=== PATIENT | female | born 1985 | race Caucasian/White ===

== ENCOUNTER 2020-05-27 05:05 | Inpatient (IN) | payer OTHER ==
[~2020-05-27] VITALS: Ht 162.6 cm; Wt 72.0 kg
--- NOTE | ~2020-05-27 | OR ---
[facility] [address], [place] [address] Draft DATE OF OPERATION: 05/27/2020 SURGEON: Lesvia Flores MD SOCIAL MEDIA SENIOR ASSOCIATE: Vasquez. PREOPERATIVE DIAGNOSIS: Term , previous section. POSTOPERATIVE DIAGNOSIS: Term , previous section, delivered. PROCEDURE: Repeat section with low segment transverse uterine incision. ANESTHESIA: Spinal. ESTIMATED BLOOD LOSS: 600 mL. DRAINS: Blue catheter. INDICATIONS AND FINDINGS: The patient is a 35-year-old female, 2, para 1, admitted at 39 weeks for repeat section. At the time of surgery, she was delivered a little boy from the LOT position via lower segment transverse uterine incision with Apgars of 9 and 9 and weight of 8 pounds 1 ounce. The uterus, tubes, ovaries, and placenta appeared normal. DESCRIPTION OF PROCEDURE: The patient was prepped and draped in the supine position. A Pfannenstiel skin incision was made through her prior incision. The incision was carried down through the fascia and fascial incision was extended laterally. The inferior and superior fascial flaps were created. The muscles were bluntly divided and the peritoneum opened sharply and the incision extended bluntly. There was some advancement of the bladder on the anterior wall of the uterus, but this was minimal. Following this, the Cornell retractor was placed. The uterine incision was made at the upper aspect of the peritoneal reflection. The baby was delivered with the above findings and handed off to the PATIENT NAME: JOSE R LANZA OPERATIVE REPORT DATE OF : 83 REPORT #: [id number] PHYSICIAN: LESVIA FLORES MD PCP: YUE CROWLEY MD REPORT IS CONFIDENTIAL AND NOT TO BE RELEASED WITHOUT AUTHORIZATION [facility] [address], [place] [address] Draft pediatric staff in attendance. The placenta was removed manually. The uterus was explored with lap tape assuring no remaining fragments. The uterus was closed in 2 layers using 0 Monocryl. The first layer was a running locking stitch and the second was a vertical imbricating stitch. There were some bleeding points on the anterior wall of the uterus from her prior adhesions, which were treated with cautery. The abdomen was then copiously irrigated, inspected, and good hemostasis was noted. The retractor was removed and the peritoneum identified. An ACell graft was then laid over the lower segment to aid in healing. The peritoneum was then closed with a running suture of 3-0 Vicryl. The muscles were brought together with interrupted sutures of 0 Vicryl. Bleeding points were controlled with cautery. This area was irrigated and inspected and again good hemostasis was noted. ACell powder was then sprinkled over the muscles to aid in healing. The fascia was then closed from each angle to the midline with a running suture of 0 Vicryl. The subcu space was irrigated, inspected and bleeding points controlled with cautery. The deep space was closed with interrupted sutures of 3-0 Vicryl. The skin was closed with alvaro. All sponge and needle counts were correct. She tolerated procedure well and was taken to the recovery room in good condition. MD ADIS Gaxiola/MODL /[id number] cc: Dr. Vasquez Copies: ~ PATIENT NAME: JOSE R LANZA MICKI OPERATIVE REPORT DATE OF : 83 REPORT #: [id number] PHYSICIAN: LESVIA FLORES MD PCP: YUE CROWLEY MD REPORT IS CONFIDENTIAL AND NOT TO BE RELEASED WITHOUT AUTHORIZATION
--- OUTSIDE RECORDS SUMMARY | ~2020-05-27 | XMS | Encounter Summary ---
Demographics + + + | Address | [address] | | | [place] [address] | + + + | Home Phone | | + + + | Preferred Language | Unknown | + + + | Marital Status | | + + + | Amish Affiliation | Unknown | + + + | Race | White | + + + | Ethnic Group | Not or | + + + Author + + + | Author | [facility] | + + + | Organization | [facility] | + + + | Address | Unknown | + + + | Phone | Unavailable | + + + Support + + +---------+ + | Name | Relationship | Address | Phone | + + +---------+ + | Artie Castellanos | ECON | Unknown | | + + +---------+ + Care Team Providers + +------+ + | Care Nurse Transitional Name | Role | Phone | + +------+ + | Gerry Perry MD | PCP | | + +------+ + Encounter Details +--------+ + + + + | Date | Type | Department | Care Team | Description | +--------+ + + + + | 12/19/ | Document-Sc | Health Information | Unknown . | | | 2017 | anned | Services [address] | | | | | | [address] | | | | | | Mailcode: OP17A | | | | | | [facility] | | | | | | [place], [place] | | | | | | [address] | | | | | | [phone] | | | +--------+ + + + + Social History + +-------+ +--------+------+ | Tobacco Use | Types | Packs/Day | Years | Date | | | | | Used | | + +-------+ +--------+------+ | Never Assessed | | | | | + +-------+ +--------+------+ + + + | Sex Assigned at | Date Recorded | | | | + + + | Not on file | | + + + + + + + | Job Start Date | Occupation | Industry | + + + + | Not on file | Not on file | Not on file | + + + + + + + + | Travel History | Travel Start | Travel End | + + + + + + | No recent travel history available. | + + documented as of this encounter Plan of Treatment Not on filedocumented as of this encounter Procedures + +--------+ + + + | Procedure Name | Priori | Date/Time | Associated Diagnosis | Comments | | | ty | | | | + +--------+ + + + | RADIOLOGY | | 12/19/2016 | | Results for this | | | | 12:00 AM | | procedure are in the | | | | PST | | results section. | + +--------+ + + + documented in this encounter Results RADIOLOGY (12/19/2016 12:00 AM PST) + + + | Narrative | Performed At | + + + | | | + + + documented in this encounter Visit Diagnoses Not on filedocumented in this encounter"
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
--- OUTSIDE RECORDS SUMMARY | ~2020-05-27 | XMS | Encounter Summary ---
Demographics + + + | Address | [address] | | | [place] [address] | + + + | Home Phone | | + + + | Preferred Language | Unknown | + + + | Marital Status | | + + + | Presybeterian Affiliation | Unknown | + + + | Race | White | + + + | Ethnic Group | Not or | + + + Author + + + | Author | [facility] | + + + | Organization | [facility] | + + + | Address | Unknown | + + + | Phone | Unavailable | + + + Support + + +---------+ + | Name | Relationship | Address | Phone | + + +---------+ + | Artie Castellanos | ECON | Unknown | | + + +---------+ + Care Team Providers + +------+ + | Care Learning Technologies Specialist Name | Role | Phone | + +------+ + | Gerry Perry MD | PCP | | + +------+ + Reason for Visit + + + | Reason | Comments | + + + | Question | | + + + Encounter Details +--------+ + + + + | Date | Type | Department | Care Team | Description | +--------+ + + + + | 11/03/ | Telephone | [facility] | Kennedy Garcia | Question | | 2017 | | Center at [facility] [address] | MD [address] | | | | | [address] [facility] | [facility] [address] | | | | | for Health and | [place], [place] | | | | | Healing, [place] [address], | [address] | | | | | [address] [place] [address] | [phone] | | | | | [place], [place] | | | | | | [address] | | | | | | [phone] | | | +--------+ + + + [...] Not on filedocumented as of this encounter Visit Diagnoses Not on filedocumented in this encounter
--- OUTSIDE RECORDS SUMMARY | ~2020-05-27 | XMS | Encounter Summary ---
Demographics + + + | Address | [address] | | | [place] [address] | + + + | Home Phone | | + + + | Preferred Language | Unknown | + + + | Marital Status | | + + + | Latter-Day Affiliation | Unknown | + + + | Race | White | + + + | Ethnic Group | Not or | + + + Author + + + | Author | [facility] | + + + | Organization | [facility] | + + + | Address | Unknown | + + + | Phone | Unavailable | + + + Support + + +---------+ + | Name | Relationship | Address | Phone | + + +---------+ + | Artie Castellanos | ECON | Unknown | | + + +---------+ + Care Team Providers + +------+ + | Care Driver Salesman Name | Role | Phone | + +------+ + | Gerry Perry MD | PCP | | + +------+ + Encounter Details +--------+ + + + + | Date | Type | Department | Care Team | Description | +--------+ + + + + | 08/17/ | Document-Sc | Health Information | Unknown . | | | 2017 | anned | Services [address] | | | | | | [address] | | | | | | Mailcode: OP17A | | | | | | [facility] | | | | | | [place], [place] | | | | | | [address] | | | | | | [phone] | | | +--------+ + + + [...] + + + | RADIOLOGY | | 08/17/2017 | | Results for this | | | | 12:00 AM | | procedure are in the | | | | PDT | | results section. | + +--------+ + + + | RADIOLOGY | | 08/17/2017 | | Results for this | | | | 12:00 AM | | procedure are in the | | | | PDT | | results section. | + +--------+ + + + documented in this encounter Results RADIOLOGY (08/17/2017 12:00 AM PDT) + + + | Narrative | Performed At | + + + | | | + + + RADIOLOGY (08/17/2017 12:00 AM PDT) + + + | Narrative | Performed At | + + + | | | + + + documented in this encounter Visit Diagnoses Not on filedocumented in this encounter"
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
--- OUTSIDE RECORDS SUMMARY | ~2020-05-27 | XMS | Encounter Summary ---
Demographics + + + | Address | [address] | | | [place] [address] | + + + | Home Phone | | + + + | Preferred Language | Unknown | + + + | Marital Status | | + + + | Yazidi Affiliation | Unknown | + + + | Race | White | + + + | Ethnic Group | Not or | + + + Author + + + | Author | [facility] | + + + | Organization | [facility] | + + + | Address | Unknown | + + + | Phone | Unavailable | + + + Support + + +---------+ + | Name | Relationship | Address | Phone | + + +---------+ + | Artie Castellanos | ECON | Unknown | | + + +---------+ + Care Team Providers + +------+ + | Care Jig Grinder Set Up Operator Name | Role | Phone | + +------+ + | Gerry Perry MD | PCP | | + +------+ + Encounter Details +--------+ + + + + | Date | Type | Department | Care Team | Description | +--------+ + + + + | 12/16/ | Document-Sc | Health Information | Unknown . | | | 2017 | anned | Services [address] | | | | | | [address] | | | | | | Mailcode: OP17A | | | | | | [facility] | | | | | | [place], [place] | | | | | | [address] | | | | | | [phone] | | | +--------+ + + + [...] + + + | RADIOLOGY | | 12/16/2016 | | Results for this | | | | 12:00 AM | | procedure are in the | | | | PST | | results section. | + +--------+ + + + documented in this encounter Results RADIOLOGY (12/16/2016 12:00 AM PST) + + + | Narrative | Performed At | + + + | | | + + + documented in this encounter Visit Diagnoses Not on filedocumented in this encounter"
--- OUTSIDE RECORDS SUMMARY | ~2020-05-27 | XMS | Encounter Summary ---
Demographics + + + | Address | [address] | | | [place] [address] | + + + | Home Phone | | + + + | Preferred Language | Unknown | + + + | Marital Status | | + + + | Yazidism Affiliation | Unknown | + + + | Race | White | + + + | Ethnic Group | Not or | + + + Author + + + | Author | [facility] | + + + | Organization | [facility] | + + + | Address | Unknown | + + + | Phone | Unavailable | + + + Support + + +---------+ + | Name | Relationship | Address | Phone | + + +---------+ + | Artie Castellanos | ECON | Unknown | | + + +---------+ + Care Team Providers + +------+ + | Care Industrial Commercial Groundskeeper Name | Role | Phone | + +------+ + | Gerry Perry MD | PCP | | + +------+ + Encounter Details +--------+ + + + + | Date | Type | Department | Care Team | Description | +--------+ + + + + | 10/14/ | Documentati | [place] [facility] | Kennedy Garcia | | | 2017 | on | Center at [facility] [address] | MD [address] | | | | | [address] [facility] | [address] | | | | | for Health and | [facility] [place] | | | | | [facility], [address], | [address] | | | | | 5th Floor | [phone] | | | | | [place], [place] | | | | | | [address] | | | | | | [phone] | | | +--------+ + + + [...]
--- OUTSIDE RECORDS SUMMARY | ~2020-05-27 | XMS | Encounter Summary ---
Demographics + + + | Address | [address] | | | [place] [address] | + + + | Home Phone | | + + + | Preferred Language | Unknown | + + + | Marital Status | | + + + | Anglican Affiliation | Unknown | + + + | Race | White | + + + | Ethnic Group | Not or | + + + Author + + + | Author | [facility] | + + + | Organization | [facility] | + + + | Address | Unknown | + + + | Phone | Unavailable | + + + Support + + +---------+ + | Name | Relationship | Address | Phone | + + +---------+ + | Artie Castellanos | ECON | Unknown | | + + +---------+ + Care Team Providers + +------+ + | Care Actuary Name | Role | Phone | + +------+ + | Gerry Perry MD | PCP | | + +------+ + Encounter Details +--------+ + + + + | Date | Type | Department | Care Team | Description | +--------+ + + + + | 12/25/ | Document-Sc | Health Information | Unknown . | | | 2017 | anned | Services [id number] | | | | | | [address] | | | | | | Mailcode: [id number] | | | | | | [facility] | | | | | | [place], [place] | | | | | | [address] | | | | | | [phone] | | | +--------+ + + + [...] + + + | RADIOLOGY | | 12/25/2016 | | Results for this | | | | 12:00 AM | | procedure are in the | | | | PST | | results section. | + +--------+ + + + documented in this encounter Results RADIOLOGY (12/25/2016 12:00 AM PST) + + + | Narrative | Performed At | + + + | | | + + + documented in this encounter Visit Diagnoses Not on filedocumented in this encounter"
--- OUTSIDE RECORDS SUMMARY | ~2020-05-27 | XMS | Encounter Summary ---
Demographics + + + | Address | [address] | | | [place] [address] | + + + | Home Phone | | + + + | Preferred Language | Unknown | + + + | Marital Status | | + + + | Gnosticist Affiliation | Unknown | + + + | Race | White | + + + | Ethnic Group | Not or | + + + Author + + + | Author | [facility] | + + + | Organization | [facility] | + + + | Address | Unknown | + + + | Phone | Unavailable | + + + Support + + +---------+ + | Name | Relationship | Address | Phone | + + +---------+ + | Artie Castellanos | ECON | Unknown | | + + +---------+ + Care Team Providers + +------+ + | Care Mink Rancher Name | Role | Phone | + +------+ + | Gerry Perry MD | PCP | | + +------+ + Encounter Details +--------+ + + + + | Date | Type | Department | Care Team | Description | +--------+ + + + + | 08/02/ | Document-Sc | Health Information | Unknown . | | | 2017 | anned | Services [id number] | | | | | | [address] | | | | | | Mailcode: [id number] | | | | | | [facility] | | | | | | [place], [place] | | | | | | [address] | | | | | | [phone] | | | +--------+ + + + [...] + + + | RADIOLOGY | | 08/02/2017 | | Results for this | | | | 12:00 AM | | procedure are in the | | | | PDT | | results section. | + +--------+ + + + documented in this encounter Results RADIOLOGY (08/02/2017 12:00 AM PDT) + + + | Narrative | Performed At | + + + | | | + + + documented in this encounter Visit Diagnoses Not on filedocumented in this encounter"
--- OUTSIDE RECORDS SUMMARY | ~2020-05-27 | XMS | Encounter Summary ---
Demographics + + + | Address | [address] | | | [place] [address] | + + + | Home Phone | | + + + | Preferred Language | Unknown | + + + | Marital Status | | + + + | Advent Affiliation | Unknown | + + + | Race | White | + + + | Ethnic Group | Not or | + + + Author + + + | Author | [facility] | + + + | Organization | [facility] | + + + | Address | Unknown | + + + | Phone | Unavailable | + + + Support + + +---------+ + | Name | Relationship | Address | Phone | + + +---------+ + | Artie Castellanos | ECON | Unknown | | + + +---------+ + Care Team Providers + +------+ + | Care Net Software Architect Name | Role | Phone | + +------+ + | Gerry Perry MD | PCP | | + +------+ + Encounter Details +--------+ + + + + | Date | Type | Department | Care Team | Description | +--------+ + + + + | 08/02/ | Document-Sc | Health Information | Unknown . | | | 2017 | anned | Services [id number] | | | | | | [address] | | | | | | Mailcode: [id number] | | | | | | [facility] | | | | | | [place], [place] | | | | | | [address] | | | | | | [phone] | | | +--------+ + + + [...]
--- OUTSIDE RECORDS SUMMARY | ~2020-05-27 | XMS | Clinical Summary ---
Demographics + + + | Address | [address] | | | [place] [address] | + + + | Home Phone | | + + + | Preferred Language | Unknown | + + + | Marital Status | | + + + | Denominational Affiliation | Unknown | + + + | Race | Unknown | + + + | Ethnic Group | Unknown | + + + Author + + + | Author | [facility] | | | and [place] | + + + | Organization | [facility] | | | and [place] | + + + | Address | Unknown | + + + | Phone | Unavailable | + + + Support + + +---------+ + | Name | Relationship | Address | Phone | + + +---------+ + | Hua Castellanos | ECON | Unknown | | + + +---------+ + Care Team Providers + +------+ + | Care Committee Member Name | Role | Phone | + +------+ + | Gerry Perry MD | PCP | | + +------+ + Allergies Not on File Medications Not on file Active Problems Not on file Immunizations + + + + | Name | Administration Dates | Next Due | + + + + | PNEUMOCOCCAL | 12/17/2016 | | | POLYSACCHARIDE | | | | 23-VALENT (PPSV23) | | | + + + + Social History + +-------+ +--------+------+ | Tobacco Use | Types | Packs/Day | Years | Date | | | | | Used | | + +-------+ +--------+------+ | Former Smoker | | | | | + +-------+ +--------+------+ + + | Comments: Per pt, only smokes "socially when drinking" | + + + + + | Sex Assigned at | Date Recorded | | | | + + + | Not on file | | + + + Last Filed Vital Signs + + + + + | Vital Sign | Reading | Time Taken | Comments | + + + + + | Blood Pressure | 99/61 | 12/18/2016 11:40 AM | | | | | PST | | + + + + + | Pulse | 68 | 12/18/2016 11:40 AM | | | | | PST | | + + + + + | Temperature | 36.8 C (98.2 F) | 12/18/2016 11:40 AM | | | | | PST | | + + + + + | Respiratory Rate | 16 | 12/18/2016 11:40 AM | | | | | PST | | + + + + + | Oxygen Saturation | - | - | | + + + + + | Inhaled Oxygen | - | - | | | Concentration | | | | + + + + + | Weight | 47.6 kg (105 lb) | 02/09/2017 10:54 AM | | | | | PDT | | + + + + + | Height | 160 cm (5' 3") | 02/09/2017 10:54 AM | | | | | PDT | | + + + + + | Body Mass Index | 18.6 | 02/09/2017 10:54 AM | | | | | PDT | | + + + + + Plan of Treatment + + + + + | Health Maintenance | Due Date | Last | Comments | | | | Done | | + + + + + | Cervical Cancer | | | | | Screening (Pap) | 4 | | | + + + + + | Vaccine: Influenza | | 09/08/20 | | | (#1) | 0 | 19, | | | | | 08/18/20 | | | | | 18, | | | | | 08/20/20 | | | | | 17, | | | | | Addition | | | | | al | | | | | history | | | | | exists | | + + + + + | Vaccine: | | 05/09/20 | | | Dtap/Tdap/Td (2 - | 2 | 12 | | | Td) | | | | + + + + + Results Not on filefrom Last 3 Months Advance Directives + + + + + | Type | Date Recorded | Patient | Explanation | | | | Waiter/Waitress Bar | | + + + + + | Power of | | | | | Sound Engineering Technician | | | | + + + + + | Advance | | | | | Directive | | | | + + + + +
--- OUTSIDE RECORDS SUMMARY | ~2020-05-27 | XMS | Encounter Summary ---
Demographics + + + | Address | [address] | | | [place] [address] | + + + | Home Phone | | + + + | Preferred Language | Unknown | + + + | Marital Status | | + + + | Confucianist Affiliation | Unknown | + + + | Race | White | + + + | Ethnic Group | Not or | + + + Author + + + | Author | [facility] | + + + | Organization | [facility] | + + + | Address | Unknown | + + + | Phone | Unavailable | + + + Support + + +---------+ + | Name | Relationship | Address | Phone | + + +---------+ + | Artie Castellanos | ECON | Unknown | | + + +---------+ + Care Team Providers + +------+ + | Care Dubbing Machine Operator Name | Role | Phone | [...] | +--------+ + + + + | 10/01/ | Telephone | [place] [facility] | Kennedy Garcia | Question | | 2016 | | Center at [facility] [address] | MD [address] | | | | | [address] [facility] | [facility] [address] | | | | | for Health and | [place], [place] | | | | | Healing, [place] [address], | [address] | | | | | [address] [place] [address] | [phone] | | | | | [place], [place] | | | | | | [address] | | | | | | [phone] | | | +--------+ + + + [...]
--- OUTSIDE RECORDS SUMMARY | ~2020-05-27 | XMS | Encounter Summary ---
Demographics + + + | Address | [address] | | | [place] [address] | + + + | Home Phone | | + + + | Preferred Language | Unknown | + + + | Marital Status | | + + + | Adventism Affiliation | Unknown | + + + | Race | White | + + + | Ethnic Group | Not or | + + + Author + + + | Author | [facility] | + + + | Organization | [facility] | + + + | Address | Unknown | + + + | Phone | Unavailable | + + + Support + + +---------+ + | Name | Relationship | Address | Phone | + + +---------+ + | Artie Castellanos | ECON | Unknown | | + + +---------+ + Care Team Providers + +------+ + | Care Matrix Plater Name | Role | Phone | + +------+ + | Gerry Perry MD | PCP | | + +------+ + Encounter Details +--------+ + + + + | Date | Type | Department | Care Team | Description | +--------+ + + + + | 12/01/ | Documentati | [place] [facility] | Kennedy Garcia | | | 2018 | on | Center at [facility] [address] | MD [address] | | | | | [address] [facility] | [address] | | | | | for Health and | [facility] [place] | | | | | [facility], [address], | [address] | | | | | 5th Floor | [phone] | | | | | [place], [place] | | | | | | [address] | | | | | | [phone] | | | +--------+ + + + [...]
--- OUTSIDE RECORDS SUMMARY | ~2020-05-27 | XMS | Encounter Summary ---
Demographics + + + | Address | [address] | | | [place] [address] | + + + | Home Phone | | + + + | Preferred Language | Unknown | + + + | Marital Status | | + + + | Jainism Affiliation | Unknown | + + + | Race | White | + + + | Ethnic Group | Not or | + + + Author + + + | Author | [facility] | + + + | Organization | [facility] | + + + | Address | Unknown | + + + | Phone | Unavailable | + + + Support + + +---------+ + | Name | Relationship | Address | Phone | + + +---------+ + | Artie Castellanos | ECON | Unknown | | + + +---------+ + Care Team Providers + +------+ + | Care Cadmium Burner Name | Role | Phone | + +------+ + | Gerry Perry MD | PCP | | + +------+ + Encounter Details +--------+ + + + + | Date | Type | Department | Care Team | Description | +--------+ + + + + | 01/22/ | Document-Sc | Health Information | Unknown . | | | 2017 | anned | Services [address] | | | | | | [address] | | | | | | Mailcode: [id number] | | | | | | [facility] | | | | | | [place], [place] | | | | | | [address] | | | | | | [phone] | | | +--------+ + + + [...] + + + | RADIOLOGY | | 01/22/2017 | | Results for this | | | | 12:00 AM | | procedure are in the | | | | PDT | | results section. | + +--------+ + + + documented in this encounter Results RADIOLOGY (01/22/2017 12:00 AM PDT) + + + | Narrative | Performed At | + + + | | | + + + documented in this encounter Visit Diagnoses Not on filedocumented in this encounter"
--- OUTSIDE RECORDS SUMMARY | ~2020-05-27 | XMS | Encounter Summary ---
Demographics + + + | Address | [address] | | | [place] [address] | + + + | Home Phone | | + + + | Preferred Language | Unknown | + + + | Marital Status | | + + + | Jew Affiliation | Unknown | + + + | Race | White | + + + | Ethnic Group | Not or | + + + Author + + + | Author | [facility] | + + + | Organization | [facility] | + + + | Address | Unknown | + + + | Phone | Unavailable | + + + Support + + +---------+ + | Name | Relationship | Address | Phone | + + +---------+ + | Artie Castellanos | ECON | Unknown | | + + +---------+ + Care Team Providers + +------+ + | Care Window Decorator Name | Role | Phone | + +------+ + | Gerry Perry MD | PCP | | + +------+ + Encounter Details +--------+ + + + + | Date | Type | Department | Care Team | Description | +--------+ + + + + | 07/29/ | Telephone | [place] [facility] | Kennedy Garcia | | | 2017 | | Center at [facility] [address] | MD [address] | | | | | [address] [facility] | [address] | | | | | for Health and | [facility] [place] | | | | | [facility], [address], | [address] | | | | | [address] [place] [address] | [phone] | | | | | [place], [place] | | | | | | [address] | | | | | | [phone] | | | +--------+ + + + [...]
--- OUTSIDE RECORDS SUMMARY | ~2020-05-27 | XMS | Encounter Summary ---
Demographics + + + | Address | [address] | | | [place] [address] | + + + | Home Phone | | + + + | Preferred Language | Unknown | + + + | Marital Status | | + + + | Sikh Affiliation | Unknown | + + + [...] Team Providers + +------+ + | Care Centerless Grinder Name | Role | Phone | + +------+ + | Gerry Perry MD | PCP | | + +------+ + Encounter Details +--------+ + + + + | Date | Type | Department | Care Team | Description | +--------+ + + + + | 08/02/ | Telephone | [place] [facility] | Kennedy Garcia | | | 2017 | | Center at [facility] [address] | MD [address] | | | | | [address] [facility] | [address] | | | | | for Health and | [facility] [place] | | | | | [facility], [address], | [address] | | | | | [address] [place] [address] | [phone] | | | | | [place], [place] | | | | | | [address] | | | | | | [phone] | | | +--------+ + + + [...]
--- OUTSIDE RECORDS SUMMARY | ~2020-05-27 | XMS | Encounter Summary ---
Demographics + + + | Address | [address] | | | [place] [address] | + + + | Home Phone | | + + + | Preferred Language | Unknown | + + + | Marital Status | | + + + | Anabaptism Affiliation | Unknown | + + + | Race | Unknown | + + + | Ethnic Group | Unknown | + + + Author + + + | Author | [facility] | | | and [place] | + + + | Organization | [facility] | | | and [place] | [...] Team Providers + +------+ + | Care Director Of Informatics Name | Role | Phone | + +------+ + | Gerry Perry MD | PCP | | + +------+ + Encounter Details +--------+ + + + + | Date | Type | Department | Care Team | Description | +--------+ + + + + | 02/08/ | Imaging | [facility] | Provider, | | | 2019 | Exam | [facility] | [address] | | | | | IMAGING [address] | [address] | | | | | [address] | [place] [address] | | | | | [place] [address] | | | | | | [phone] | | | +--------+ + + + [...] on file | | + + + documented as of this encounter Plan of Treatment Not on filedocumented as of this encounter Procedures + +--------+ + + + | Procedure Name | Priori | Date/Time | Associated Diagnosis | Comments | | | ty | | | | + +--------+ + + + | CT CERVICAL SPINE WO | Routin | 12/16/2016 | | Results for this | | CONTRAST | e | 12:00 AM | | procedure are in the | | | | PST | | results section. | + +--------+ + + + documented in this encounter Results CT Cervical Spine wo Contrast (12/16/2016 12:00 AM PST) + + | Specimen | + + | | + + + + + | Narrative | Performed At | + + + | External films for comparison only | [facility] | | | | | No results will be in the chart. | | + + + + +---------+ + + | Performing | Address | City/State/Zipcode | Phone Number | | Organization | | | | + +---------+ + + | [facility] | | | | + +---------+ + + documented in this encounter Visit Diagnoses Not on filedocumented in this encounter"
--- OUTSIDE RECORDS SUMMARY | ~2020-05-27 | XMS | Encounter Summary ---
Demographics + + + | Address | [address] | | | [place] [address] | + + + | Home Phone | | + + + | Preferred Language | Unknown | + + + | Marital Status | | + + + | Jain Affiliation | Unknown | + + + | Race | Unknown | + + + | Ethnic Group | Unknown | + + + Author + + + | Author | [facility] | | | and [place] | + + + | Organization | [facility] | | | and [place] | [...] Team Providers + +------+ + | Care Astrobiologist Name | Role | Phone | + +------+ + PCP | Unavailable | + +------+ + Encounter Details +--------+ + + + + | Date | Type | Department | Care Team | Description | +--------+ + + + + | 02/04/ | Hospital | [facility] IP | Conversion | Headache, | | 2017 | Encounter | CONVERSION DEP 888 | Transaction, | unspecified headache | | | | [place] | Provider Unknown | type | | | | [place] | | | | | | [address] | (Fax) | | | | | | | | +--------+ + + + [...] + +--------+ + + + | CT HEAD WO CONTRAST | Routin | 01/22/2017 | | Results for this | | | e | 8:21 AM | | procedure are in the | | | | PDT | | results section. | + +--------+ + + + documented in this encounter Results CT Head wo Contrast (01/22/2017 8:21 AM PDT) + + | Specimen | + + | | + + + + + | Narrative | Performed At | + + + | This is a non-reportable procedure without a radiologist report and | | | is used for image storage only | | + + + + + | Procedure Note | + + | Dax Mcguire - 06/15/2019 6:48 AM PDT This is a non-reportable procedure | | without a radiologist report and isused for image storage only | + + documented in this encounter Visit Diagnoses + + | Diagnosis | + + | Headache, unspecified headache type | + + documented in this encounter"
--- OUTSIDE RECORDS SUMMARY | ~2020-05-27 | XMS | Encounter Summary ---
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 specimen | | (specimen) | + + + +---------+ + + | Performing | Address | City/State/Zipcode | Phone Number | | Organization | | | | + +---------+ + + | EXTERNAL LAB | | | | + +---------+ + + Protime INR (12/16/2016 7:47 PM PST) + + + + + + | Component | Value | Ref Range | Performed | Pathologist | | | | | At | Signature | + + + + + + | INR | 1.0Comment: REFERENCE | | EXTERNAL | | | | RANGE:0.9 - 1.2 | | LAB | | | | NON-ANTICOAGULATED2.0 | | | | | | - 3.0 ALL OTHER | | | | | | THERAPEUTIC | | | | | | INDICATIONS2.5 - 3.5 | | | | | | MECHANICAL HEART VALVES, | | | | | | RECURRENT OR SYSTEMIC | | | | | | EMBOLISMTesting | | | | | | performed at [facility] | | | | | | [address];[place], [place] | | | | | | [address] | | | | + + + + + + + + | Specimen | + + | Blood specimen | | (specimen) | + + + +---------+ + + | Performing | Address | City/State/Zipcode | Phone Number | | Organization | | | | + +---------+ + + | EXTERNAL LAB | | | | + +---------+ + + External Lab: CBC (12/16/2016 7:47 PM PST) + + + + + + | Component | Value | Ref Range | Performed | Pathologist | | | | | At | Signature | + + + + + + | WBC | 12.99 (H)Comment: | 3.80 - 11.00 | EXTERNAL | | | | Testing performed at | K/uL | LAB | | | | [facility];[address];[place] [address] | | | | + + + + + + | Non- | 3.98Comment: Testing | 3.70 - 5.10 | EXTERNAL | | | Red Blood | performed at [facility];[address] | M/uL | LAB | | | Cells | [address];[place] | | | | | Counted | [address] | | | | + + + + + + | Hemoglobin | 12.0Comment: Testing | 11.3 - 15.5 | EXTERNAL | | | | performed at [facility];[address] | g/dL | LAB | | | | [address];[place] | | | | | | [address] | | | | + + + + + + | Hematocrit, | 35.3Comment: Testing | 34.0 - 46.0 % | EXTERNAL | | | POC | performed at [facility];[address] | | LAB | | | | [address];[place] | | | | | | [address] | | | | + + + + + + | MCV | 88.7Comment: Testing | 80.0 - 100.0 fl | EXTERNAL | | | | performed at [facility];[address] | | LAB | | | | [address];[place] | | | | | | [address] | | | | + + + + + + | MCH | 30.0Comment: Testing | 27.0 - 34.0 pg | EXTERNAL | | | | performed at [facility];[address] | | LAB | | | | [address];[place] | | | | | | [address] | | | | + + + + + + | MCHC | 33.9Comment: Testing | 32.0 - 35.5 | EXTERNAL | | | | performed at [facility];[address] | g/dL | LAB | | | | [address];[place] | | | | | | [address] | | | | + + + + + + | RDW-CV | 41.1Comment: Testing | 37 - 53 fl | EXTERNAL | | | | performed at [facility];[address] | | LAB | | | | [address];[place] | | | | | | [address] | | | | + + + + + + | Platelet | 160Comment: Testing | 150 - 400 K/uL | EXTERNAL | | | Count | performed at [facility];[address] | | LAB | | | Plasma | [address];[place] | | | | | | [address] | | | | + + + + + + | MPV | 8.4Comment: Testing | fl | EXTERNAL | | | | performed at [facility];[address] | | LAB | | | | [address];[place] | | | | | | [address] | | | | + + + + + + | Differentia | MANUALComment: Testing | | EXTERNAL | | | l Type | performed at [facility];[address] | | LAB | | | | [address];[place] | | | | | | [address] | | | | + + + + + + | Segmented | 75Comment: Testing | % | EXTERNAL | | | Neutrophils | performed at [facility];[address] | | LAB | | | Manual | [address];[place] | | | | | | [address] | | | | + + + + + + | % Bands | 14Comment: Testing | % | EXTERNAL | | | | performed at [facility];[address] | | LAB | | | | [address];[place] | | | | | | [address] | | | | + + + + + + | Lymphocytes | 8Comment: Testing | % | EXTERNAL | | | Manual | performed at [facility];[address] | | LAB | | | | [address];[place] | | | | | | [address] | | | | + + + + + + | Monocytes | 3Comment: Testing | % | EXTERNAL | | | Manual | performed at [facility];[address] | | LAB | | | | [address];[place] | | | | | | [address] | | | | + + + + + + | Absolute | 9.74 (H)Comment: Testing | 1.90 - 7.40 | EXTERNAL | | | Neutrophils | performed at [facility];[address] | K/uL | LAB | | | | [address];[place] | | | | | | [address] | | | | + + + + + + | Bands | 1.82 (H)Comment: Testing | 0.00 - 0.20 | EXTERNAL | | | Manual | performed at [facility];[address] | K/uL | LAB | | | | [address];[place] | | | | | | [address] | | | | + + + + + + | Absolute | 1.04Comment: Testing | 1.00 - 3.90 | EXTERNAL | | | Lymphocytes | performed at [facility];[address] | K/uL | LAB | | | | [address];[place] | | | | | | [address] | | | | + + + + + + | Absolute | 0.39Comment: Testing | 0.00 - 0.80 | EXTERNAL | | | Monocytes | performed at [facility];[address] | K/uL | LAB | | | | [address];[place] | | | | | | [address] | | | | + + + + + + | Platelet | ADEQUATEComment: Testing | | EXTERNAL | | | Estimate | performed at [facility];[address] | | LAB | | | | [address];[place] | | | | | | [address] | | | | + + + + + + | RBC | NORMAL RBC MORPHComment: | | EXTERNAL | | | Morphology | Testing performed at | | LAB | | | | [facility];[address];[place] [address] | | | | + + + + + + | Differentia | OCCASSIONAL PLATELET | | EXTERNAL | | | l Comments | CLUMP ON SLIDE | | LAB | | | | PLATELETS APPEAR | | | | | | ADEQUATE IN NUMBER AND | | | | | | SIZEComment: Testing | | | | | | performed at [facility];[address] | | | | | | [facility];[place], [place] | | | | | | [address] | | | | + + + + + + + + | Specimen | + + | Blood specimen | | (specimen) | + + + +---------+ + + | Performing | Address | City/State/Zipcode | Phone Number | | Organization | | | | + +---------+ + + | EXTERNAL LAB | | | | + +---------+ + + Basic Metabolic Panel (12/16/2016 7:47 PM PST) + + + + + + | Component | Value | Ref Range | Performed | Pathologist | | | | | At | Signature | + + + + + + | Na | 141Comment: Testing | 135 - 145 | EXTERNAL | | | | performed at [facility];[address] | mmol/L | LAB | | | | [address];[place] | | | | | | [address] | | | | + + + + + + | K | 3.5Comment: Testing | 3.5 - 4.9 | EXTERNAL | | | | performed at [facility];[address] | mmol/L | LAB | | | | [address];[place] | | | | | | [address] | | | | + + + + + + | Cl | 109Comment: Testing | 99 - 109 mmol/L | EXTERNAL | | | | performed at [facility];[address] | | LAB | | | | [address];[place] | | | | | | [address] | | | | + + + + + + | CO2 | 23Comment: Testing | 23 - 32 mmol/L | EXTERNAL | | | | performed at [facility];[address] | | LAB | | | | [address];[place] | | | | | | [address] | | | | + + + + + + | Anion Gap | 13Comment: Testing | 5 - 20 mmol/L | EXTERNAL | | | | performed at [facility];[address] | | LAB | | | | [address];[place] | | | | | | [address] | | | | + + + + + + | Glucose, | 128 (H)Comment: Testing | 65 - 99 mg/dL | EXTERNAL | | | Fasting | performed at [facility];[address] | | LAB | | | | [address];[place] | | | | | | [address] | | | | + + + + + + | BUN | 12Comment: Testing | 8 - 25 mg/dL | EXTERNAL | | | | performed at [facility];[address] | | LAB | | | | [address];[place] | | | | | | [address] | | | | + + + + + + | Creatinine | 0.66Comment: Testing | 0.50 - 1.00 | EXTERNAL | | | | performed at [facility];[address] | mg/dL | LAB | | | | [address];[place] | | | | | | [address] | | | | + + + + + + | BUN/Creatin | 18Comment: Testing | | EXTERNAL | | | ine Ratio | performed at [facility];[address] | | LAB | | | | [address];[place] | | | | | | [address] | | | | + + + + + + | Calcium | 8.1 (L)Comment: Testing | 8.5 - 10.5 | EXTERNAL | | | | performed at [facility];[address] | mg/dL | LAB | | | | [address];[place], [place] | | | | | | [address] | | | | + + + + + + | Estimated | >60Comment: GFR <60: | mL/min/1.73m2 | EXTERNAL | | | GFR | CHRONIC KIDNEY DISEASE, | | LAB | | | | IF FOUND OVER A 3 MONTH | | | | | | PERIOD.GFR <15: KIDNEY | | | | | | FAILURE.FOR | | | | | | AMERICANS, MULTIPLY THE | | | | | | CALCULATED GFR BY | | | | | | 1.210.Testing performed | | | | | | at [facility];[address];[place] [address] | | | | + + + + + + + + | Specimen | + + | Blood specimen | | (specimen) | + + + +---------+ + + | Performing | Address | City/State/Zipcode | Phone Number | | Organization | | | | + +---------+ + + | EXTERNAL LAB | | | | + +---------+ + + Type and Screen (12/16/2016 7:46 PM PST) + + + + + + | Component | Value | Ref Range | Performed | Pathologist | | | | | At | Signature | + + + + + + | ABO Rh | A POSITIVE | | EXTERNAL | | | | | | LAB | | + + + + + + | ABO Rh | Testing performed at | | EXTERNAL | | | | [facility];[address] | | [address] | | | | [address];[place] [address] | | | | + + + + + + | Antibody | NEGATIVE | | EXTERNAL | | | Screen | | | LAB | | + + + + + + | Antibody | Testing performed at | | EXTERNAL | | | Screen | [facility];[address] | | LAB | | | | [address];[place] [address] | | | | + + + + + + | BB BAND | [id number] | | EXTERNAL | | | | | | LAB | | + + + + + + | BB BAND | Testing performed at | | EXTERNAL | | | | [facility];[address] | [address] | | | | [address];[place] [address] | | | | + + + + + + + + | Specimen | + + | Blood specimen | | (specimen) | + + + +---------+ + + | Performing | Address | City/State/Zipcode | Phone Number | | Organization | | | | + +---------+ + + | EXTERNAL LAB | | | | + +---------+ + + Culture, MRSA (12/16/2016 7:00 PM PST) + + | Specimen | + + | Body fluid sample | | (specimen) | + + + + + | Narrative | Performed At | + + + | Specimen Description NARES(NOSE) CULTURE | EXTERNAL LAB | | NO METHICILLIN RESISTANT STAPH | | | AUREUS ISOLATED. | | + + + + +---------+ + + | Performing | Address | City/State/Zipcode | Phone Number | | Organization | | | | + +---------+ + + | EXTERNAL LAB | | | | + +---------+ + + documented in this encounter Visit Diagnoses + + | Diagnosis | + + | Closed fracture of base of skull, initial encounter (HCC) | + + | Traumatic subdural hematoma with loss of consciousness, initial encounter (HCC) | + + documented in this encounter
--- OUTSIDE RECORDS SUMMARY | ~2020-05-27 | XMS | Clinical Summary ---
Demographics + + + | Address | [address] | | | [place] [address] | + + + | Home Phone | | + + + | Preferred Language | Unknown | + + + | Marital Status | | + + + | Christian Affiliation | Unknown | + + + | Race | White | + + + | Ethnic Group | Not or | + + + Author + + + | Author | [facility] | + + + | Organization | [facility] | + + + | Address | Unknown | + + + | Phone | Unavailable | + + + Support + + +---------+ + | Name | Relationship | Address | Phone | + + +---------+ + | Artie Castellanos | ECON | Unknown | | + + +---------+ + Care Team Providers + +------+ + | Care Wire Rigger Name | Role | Phone | + +------+ + | Gerry Perry MD | PCP | | + +------+ + Source Comments TEQUILA is fully live on both [facility] and [facility] Allergies + + + + + + | Active Allergy | Reactions | Severity | Noted | Comments | | | | | Date | | + + + + + + | Codeine | Nausea and Vomiting | Low | 12/16/19 | | | | | | 17 | | + + + + + + | Sulfasalazine | Nausea and Vomiting | Low | 12/16/19 | | | | | | 17 | | + + + + + + Medications + + + +---------+------+------+-------+ | Medication | Sig | Dispensed | Refills | Star | End | Statu | | | | | | t | Date | s | | | | | | Date | | | + + + +---------+------+------+-------+ | PARoxetine 10 mg | Take 1 tablet by | | 0 | 11 | | Activ | | oral tablet | mouth once daily. | | | 11/20 | | e | | | | | | 17 | | | + + + +---------+------+------+-------+ | traMADol 50 mg | Take 1 tablet by | | 0 | 09/2 | | Activ | | oral tablet | mouth as needed. | | | 07/21 | | e | | | | | | 17 | | | + + + +---------+------+------+-------+ | tiZANidine 2 mg | Take 1 tablet by | | 0 | 07/03 | | Activ | | oral tablet | mouth as needed. | | | 07/21 | | e | | | | | | 17 | | | + + + +---------+------+------+-------+ | ranitidine 150 mg | Take 1 tablet by | | 0 | | | Activ | | oral tablet | mouth once daily at | | | | | e | | | bedtime. | | | | | | + + + +---------+------+------+-------+ | ACETAMINOPHEN | Take by mouth as | | 0 | | | Activ | | (TYLENOL ORAL) | needed. | | | | | e | + + + +---------+------+------+-------+ | ondansetron 4 mg | Take by mouth as | | 0 | | | Activ | | oral tablet | needed. | | | | | e | + + + +---------+------+------+-------+ Active Problems Not on file Social History + +-------+ +--------+------+ | Tobacco [...] recent travel history available. | + + Last Filed Vital Signs + [...] Health Maintenance | Due Date | Last Done | Comments | + + + + + | Influenza (Flu) | | | | | vaccination (#1) | 9 | | | + + + + + | Pneumococcal | Aged Out | 12/17/2016 | No longer eligible | | vaccination | | | based on patient's | | | | | age to complete this | | | | | topic | + + + + + Results Not on filefrom Last 3 Months Insurance + +--------+ +--------+ + +--------+ | Payer | Benefi | Subscriber | Effect | Phone | Address | Type | | | t Plan | ID | marquis | | | | | | / | | Dates | | | | | | Group | | | | | | + +--------+ +--------+ + +--------+ | SAIF | SAIF | xxxxxxxx | | [phone] | [address] | Worker | | | | | [address] | s Comp | | | | | esent | | [place], [place] | | | | | | | | [address] | | + +--------+ +--------+ + +--------+ | PAC[employer]OURCE | PACIFI | xxxxxxxxxxx | 11/01/19 | [phone] | [address] | PPO | | | [address] | | [phone] | [address] | | sent | | [place] | | | | | | | | , [place] | | | | | | | | [address] | | + +--------+ +--------+ + +--------+ + +--------+ +--------+ + + | Guarantor Name | Accoun | Relation to | Date | Phone | Billing Address | | | t Type | Patient | of | | | | | | | | | | + +--------+ +--------+ + + | Tina Castellanos | Person | Self | [birth year] | [address] | | | al/Fam | | 1984 | | [place] [address] | | | rosina | | | 1 (Home) | | + +--------+ +--------+ + + | Tina Castellanos | Worker | Self | [birth year] | [address] | | | s Comp | | 1984 | | [place] [address] | | | | | | 1 (Home) | | + +--------+ +--------+ + +
[~2020-05-27 05:05] MED LIST: KEPPRA500 MG PO; PERCOCET 5-3251 EACH PO; TYLENOL325 MG PO; ZOFRAN4 MG PO
[2020-05-27] MEDS ORDERED: CALCIUM500 M1 PO (05:55)
[2020-05-27] MEDS ORDERED: VITAFOL-OB+DHA1 EACH PO (05:55)
[2020-05-27] MEDS ORDERED: IRON325 M1 (05:56)
--- NOTE | 2020-05-27 08:30 | NUR ---
05/27/20 0830 Lucero Rudd 0881 PT ARRIVED TO ROOM 105. PT DENIES PAIN AND NAUSEA. VSS. 0825 BABY TO CHEST AND HOB INCREASED SLIGHTLY. PT UNABLE TO MOVE LEGS AND DENIES ANY SOB.
--- NOTE | 2020-05-28 13:04 | PR ---
[facility] [address] [place], [place] [address] Signed PP Progress Notes Datetime Report Generated by CPRoger: 05/28/2020 13:04 SUBJECTIVE: [id number] Pain: Within Normal Limits Bowel Movement: Yes Vital Signs: [id number] Vital Signs: Reviewed; Within Normal Limits EXAM: Met Cardiovascular: Normal Respiratory: Not Done Abdomen/Uterus: Abnormal Lochia: Normal Vulva/Perineum: Not Done Breasts: Not Done CVA Tenderness: Not Done Extremities: Normal Incision: Normal Progress: Not Applicable Exam Comments: Abdomen with active BS. Fundus firm, NT @ U-1. H/H 10.3/30.1, WBC 7.1, plat 175k IMPRESSION/PLAN/PROCEDURES: [id number] Impression: Normal Progression Other Plans: ambulate, shower, tight bra Procedures: None Progress Notes: Doing well. Increase activity. Signing Physician: Lesvia Flores MD Copies: ~ *Electronically Signed* 05/28/20 1304 LESVIA FLORES MD PATIENT NAME: JOSE R LAZNA [facility] PROGRESS NOTE DATE OF : 83 PHYSICIAN: LESVIA FLORES MD RPT #: [id number] REPORT IS CONFIDENTIAL AND NOT TO BE RELEASED WITHOUT AUTHORIZATION
--- NOTE | 2020-05-29 10:38 | PR ---
[facility] [address] [place], [place] [address] Signed PP Progress Notes Datetime Report Generated by CPN: 05/29/2020 10:38 SUBJECTIVE: [id number] Pain: Within Normal Limits Pain Comments: RUQ and neck pain much improved. Nausea/Vomiting: Denies Flatus: Yes Bowel Movement: Yes Vital Signs: [id number] Vital Signs: Reviewed; Within Normal Limits EXAM: Met Cardiovascular: Normal Respiratory: Normal Abdomen/Uterus: Abnormal Lochia: Normal Vulva/Perineum: Not Done Breasts: Not Done CVA Tenderness: Not Done Extremities: Normal Incision: Normal Progress: Not Applicable Exam Comments: Abdomen with active BS. Fundus firm, NT @ U-2. IMPRESSION/PLAN/PROCEDURES: [id number] Impression: Normal Progression Plan: Remove [place]; Discharge Other Plans: ambulate, shower, tight bra Procedures: None Progress Notes: Doing well. She is ready for D/C. Signing Physician: Lesvia Flores MD Copies: ~ *Electronically Signed* 05/29/20 1038 LESVIA FLORES MD PATIENT NAME: CHIQUITAJOSE R CAMACHO PROGRESS NOTE DATE OF : 83 PHYSICIAN: LESVIA FLORES MD RPT #: [id number] REPORT IS CONFIDENTIAL AND NOT TO BE RELEASED WITHOUT AUTHORIZATION
== END 2020-05-29 11:20 | disposition home or self-care (01) | DRG 788 ==
LOC: FBC 05:05
PROVIDERS: ADMIT Obstetrics & Gynecology
PROC: 10D00Z1 Extraction of Products of Conception, Low, Open Approach (ICD-10-PCS; principal; 2020-05-27 07:30)
DX: O34.211 Maternal care for low transverse scar from previous cesarean delivery (principal); N85.8 Other specified noninflammatory disorders of uterus; Z3A.39 39 weeks gestation of pregnancy; Z37.0 Single live birth; O32.2XX0 Maternal care for transverse and oblique lie, not applicable or unspecified; O99.62 Diseases of the digestive system complicating childbirth; K21.9 Gastro-esophageal reflux disease without esophagitis; Z79.899 Other long term (current) drug therapy; Z88.2 Allergy status to sulfonamides; Z88.5 Allergy status to narcotic agent
CPT/HCPCS: 01961; 36415; 85027; A9270; J0690; J1885; J2001; J2274; J2370; J2405; J2550; J2590; J2765; J3010; J7040; J7121